=== PATIENT | female | born 1940 | race Caucasian/White ===

== ENCOUNTER → 2016-06-08 | Day surgery (SDC) | payer MEDICARE ==
[~2016-06-08] VITALS: Ht 167.6 cm; Wt 56.7 kg
[~2016-06-08] MED LIST: ACETAMINOPHEN 325 MG TAB PO PRN; ACETYLCHOLINE OPHTH SOLN 1% 2ML As Ordered ONE; ASPI1TAB PO; AcetaZOLAMIDE 500 MG ER CAP PO ONE; BALANCED SALT IRRIGATION SOLUTION 500ML BAG (FOR OR EYE MACHINE) As Ordered ONE; CEFUROXIME 1MG/0.1ML INTRACAMERAL INJ As Ordered ONE; CYCLOPENTOLATE 2% OPHTH SOLN As Ordered ONE; CYCLOPENTOLATE 2% OPHTH SOLN OD ONE; D5W/0.2% SODIUM CHLORIDE 250 ML IV SCH; HEALON DUET (HEALON 10MG/ML 0.55ML & HEALON ENDOCOAT 30MG/ML 0.85ML) As Ordered ONE; IBUP-1114 PO; KETOROLAC 0.5% OPHTH SOLN OD ONE; L-LY500T4 PO; LATA1POW OU; LIDOCAINE 1% SDV 5 ML VIAL As Ordered ONE; LIDOCAINE 4% INJ 5 ML AMP OU ONE; LUTECAP3 PO; MAGN1TAB25 PO; MIDAZOLAM INJ 2 MG/2 ML VIAL (J2250) As Ordered ONE; MULT1TAB10 PO; OFLOXACIN 0.3 % (OCUFLOX) OPTH SOL 5ML As Ordered ONE; OFLOXACIN 0.3 % (OCUFLOX) OPTH SOL 5ML OD ONE; PHENYLEPHRINE 2.5% OPHTH SOL 2ML As Ordered ONE; PHENYLEPHRINE 2.5% OPHTH SOL 2ML OD ONE; POTA99TA PO; POVIDONE-IODINE 5% OPHTH PREP SOL 30ML As Ordered ONE; PROPARACAINE 0.5% OPHTH SOL 15ML OD PRN; REST0.05 OU; TRIMETHOBENZAMIDE 300 MG CAP PO PRN; TROPICAMIDE 1% OPHTH SOLN 2 ML As Ordered ONE; TROPICAMIDE 1% OPHTH SOLN 2 ML OD ONE; VITA400T2 PO; ZEAX5POW PO; ZINC30TA3 PO; fentaNYL 100 MCG/2 ML INJECTION (J3010) As Ordered ONE
[2016-06-08 11:25] VITALS: BP 126/63
--- NOTE | 2016-06-09 07:16 | RO ---
DATE OF PROCEDURE: 06/08/2016 PREPROCEDURE DIAGNOSIS: Age related nuclear cataract right eye. POSTPROCEDURE DIAGNOSIS: Age related nuclear cataract right eye. PROCEDURE: Phacoemulsification and posterior chamber intraocular lens implantation. The lens used was AU00T0, 21.5 diopter. SURGEON: Bibi Bernard MD [employer] CLAIMS ADJUSTOR: ANESTHESIA: Topical with sedation. DESCRIPTION OF PROCEDURE: The patient was prepped and draped in the usual fashion. A lid speculum was placed between the lids. The eye was fixated. A stab incision was made to the anterior chamber, and 1% non-preserved lidocaine was instilled. Then, viscoelastic was instilled. The eye was re-fixated. A 2.75 mm sapphire keratome was used to make a clear corneal temporal limbal incision. Capsulorrhexis was begun with a 30-gauge bent needle and then carried out in a circular fashion with capsulorrhexis forceps. The lens was hydrodissected, and then the phacoemulsification unit was used to make a groove in the nucleus in two meridians. The nucleus was then cracked into four quadrants. Each quadrant was removed with the phacoemulsification unit. Any remaining cortex was removed with the irrigation and aspiration (I and A) unit. Capsular bag was refilled with viscoelastic. A posterior chamber intraocular lens was placed in the capsular bag without difficulty. Any remaining viscoelastic was removed with the I and A unit. The wound was hydrated, and Miochol and cefuroxime were instilled into the anterior chamber. The patient tolerated the procedure well and went to the recovery room in stable condition.
== END | disposition home or self-care (01) ==
LOC: M SDC 08:59
PROVIDERS: ATTEND Ophthalmology
DX: H25.11 Age-related nuclear cataract, right eye (principal); H40.9 Unspecified glaucoma; F41.9 Anxiety disorder, unspecified; G25.0 Essential tremor; M85.88 Other specified disorders of bone density and structure, other site; M19.90 Unspecified osteoarthritis, unspecified site; Z87.442 Personal history of urinary calculi; Z79.899 Other long term (current) drug therapy; Z79.82 Long term (current) use of aspirin
CPT/HCPCS: 66984; J2250; J3010; V2632

== ENCOUNTER → 2016-07-06 | Day surgery (SDC) | payer MEDICARE ==
[~2016-07-06] VITALS: Ht 167.6 cm; Wt 56.2 kg
[~2016-07-06] MED LIST changes: -CYCLOPENTOLATE 2% OPHTH SOLN OD ONE; +CYCLOPENTOLATE 2% OPHTH SOLN OS ONE; -D5W/0.2% SODIUM CHLORIDE 250 ML IV SCH; -KETOROLAC 0.5% OPHTH SOLN OD ONE; +KETOROLAC 0.5% OPHTH SOLN XX ONE; +MULT1CHW39 PO; -OFLOXACIN 0.3 % (OCUFLOX) OPTH SOL 5ML OD ONE; +OFLOXACIN 0.3 % (OCUFLOX) OPTH SOL 5ML OS ONE; -PHENYLEPHRINE 2.5% OPHTH SOL 2ML OD ONE; +PHENYLEPHRINE 2.5% OPHTH SOL 2ML OS ONE; -PROPARACAINE 0.5% OPHTH SOL 15ML OD PRN; +PROPARACAINE 0.5% OPHTH SOL 15ML XX PRN; -TROPICAMIDE 1% OPHTH SOLN 2 ML OD ONE; +TROPICAMIDE 1% OPHTH SOLN 2 ML OS ONE
[2016-07-06 11:41] VITALS: BP 122/57
--- NOTE | 2016-07-06 11:46 | RO ---
DATE OF PROCEDURE: 07/06/2016 PREPROCEDURE DIAGNOSIS: Age related nuclear cataract left eye. POSTPROCEDURE DIAGNOSIS: Age related nuclear cataract left eye. PROCEDURE: Phacoemulsification and posterior chamber intraocular lens implantation. The lens used was AU00T0, 21.5 diopter. SURGEON: Bibi Bernard MD [employer]ICER: ANESTHESIA: Topical with sedation. DESCRIPTION OF PROCEDURE: The patient was prepped and draped in the usual fashion. A lid speculum was placed between the lids. The eye was fixated. A stab incision was made to the anterior chamber, and 1% non-preserved lidocaine was instilled. Then, viscoelastic was instilled. The eye was re-fixated. A 2.75 mm sapphire keratome was used to make a clear corneal temporal limbal incision. Capsulorrhexis was begun with a 30-gauge bent needle and then carried out in a circular fashion with capsulorrhexis forceps. The lens was hydrodissected, and then the phacoemulsification unit was used to make a groove in the nucleus in two meridians. The nucleus was then cracked into four quadrants. Each quadrant was removed with the phacoemulsification unit. Any remaining cortex was removed with the irrigation and aspiration (I and A) unit. Capsular bag was refilled with viscoelastic. A posterior chamber intraocular lens was placed in the capsular bag without difficulty. Any remaining viscoelastic was removed with the I and A unit. The wound was hydrated, and Miochol and cefuroxime were instilled into the anterior chamber. The patient tolerated the procedure well and went to the recovery room in stable condition.
== END | disposition home or self-care (01) ==
LOC: M SDC 09:53
PROVIDERS: ATTEND Ophthalmology
DX: H25.12 Age-related nuclear cataract, left eye (principal); H40.9 Unspecified glaucoma; G25.0 Essential tremor; F41.9 Anxiety disorder, unspecified; M19.90 Unspecified osteoarthritis, unspecified site; N20.0 Calculus of kidney; Z79.899 Other long term (current) drug therapy; Z79.82 Long term (current) use of aspirin
CPT/HCPCS: 66984; J2250; J3010; V2632

== ENCOUNTER → 2017-05-10 | Outpatient (CLI) | payer MEDICARE ==
[2017-05-10 11:26] LABS: HEMATOCRIT 38.7 % (36.0-47.0); HEMOGLOBIN 13.7 g/dl (12.0-16.0); MEAN CORPUSCULAR HEMOGLOBIN 34.3 pg (27.0-33.0); MEAN CORPUSCULAR HGB CONC 35.4 g/dl (32.0-36.5); PLATELET COUNT, AUTOMATED 176 10^3/uL (150-450); RED BLOOD COUNT 3.99 10^6/uL (4.00-5.40); WHITE BLOOD COUNT 5.4 10^3/uL (4.0-10.0)
[2017-05-10 11:32] LABS: APPEARANCE, URINE CLEAR (CLEAR); BACTERIA, URINE AUTO NEGATIVE (NEGATIVE); BILIRUBIN, URINE AUTO NEGATIVE (NEGATIVE); BLOOD, URINE BLOOD 2+ (NEGATIVE); COLOR, URINE YELLOW (YELLOW); GLUCOSE, URINE (UA) AUTO NEGATIVE (NEGATIVE); KETONE, URINE AUTO NEGATIVE (NEGATIVE); LEUKOCYTE ESTERASE, URINE AUTO NEGATIVE (NEGATIVE); MUCUS, URINE SMALL (NEGATIVE); NITRITE, URINE AUTO NEGATIVE (NEGATIVE); PROTEIN, URINE AUTO NEGATIVE (NEGATIVE); RBC, URINE AUTO 4 /HPF (0-3); SQUAMOUS EPITHELIAL CELL UR AU 0 /HPF (0-6); UROBILINOGEN, URINE AUTO 0.2 mg/dL (0.0-2.0); WBC, URINE AUTO 0 /HPF (0-3)
[2017-05-10 11:40] LABS: INR 0.95; PROTHROMBIN TIME 12.8 SECONDS (12.4-14.5)
[2017-05-10 12:04] LABS: ALBUMIN 4.2 GM/DL (3.2-5.2); ALBUMIN/GLOBULIN RATIO 1.27 (1.00-1.93); ALKALINE PHOSPHATASE 77 U/L (45-117); ALT/SGPT 27 U/L (12-78); ANION GAP 7 MEQ/L (8-16); AST/SGOT 20 U/L (7-37); BILIRUBIN,TOTAL 0.6 MG/DL (0.2-1.0); BLOOD UREA NITROGEN 19 MG/DL (7-18); CALCIUM LEVEL 9.4 MG/DL (8.8-10.2); CARBON DIOXIDE LEVEL 29 MEQ/L (21-32); CHLORIDE LEVEL 102 MEQ/L (98-107); CREATININE FOR GFR 0.58 MG/DL (0.55-1.30); ERYTHROCYTE SEDIMENTATION RATE 23 mm/hr (0-30); GLOMERULAR FILTRATION RATE > 60.0 (>39); GLUCOSE, FASTING 93 MG/DL (70-100); SODIUM LEVEL 138 MEQ/L (136-145); TOTAL PROTEIN 7.5 GM/DL (6.4-8.2)
== END ==
LOC: M ADMPAT 09:49
DX: Z01.818 Encounter for other preprocedural examination (principal); M16.12 Unilateral primary osteoarthritis, left hip; Z79.01 Long term (current) use of anticoagulants; Z79.899 Other long term (current) drug therapy
CPT/HCPCS: 71046

== ENCOUNTER 2017-05-23 07:47 | Inpatient (IN) | payer MEDICARE ==
[2017-05-23] MEDS: LR 1,000 ML IV ×5 (08:00→20:18)
[2017-05-23] MEDS: LIDOCAINE 1% SDV 5 ML VIAL SC (08:00)
[2017-05-23] MEDS ORDERED: PHENYLephrine HCL 500 MCG/5 ML (100MCG/ML) SYRINGE (J2370) As Ordered ×2 (10:39→12:41)
[2017-05-23] MEDS ORDERED: MIDAZOLAM INJ 2 MG/2 ML VIAL (J2250) As Ordered (10:39)
[2017-05-23] MEDS ORDERED: ePHEDrine INJ 50 MG/ML VIAL As Ordered ×3 (10:39→12:39)
[2017-05-23] MEDS ORDERED: PROPOFOL 200 MG/20 ML VIAL As Ordered ×2 (10:39→12:38)
[2017-05-23] MEDS ORDERED: LIDOCAINE 2% INJ 100 MG/5 ML SDV (FOR ANES.) As Ordered ×2 (10:39→12:40)
[2017-05-23] MEDS: EPINEPHrine INJ 1 MG/ML 1ML AMP As Ordered (10:55)
[2017-05-23] MEDS: TRANEXAMIC ACID 100 MG/ML 10ML VIAL As Ordered (10:55)
[2017-05-23] MEDS: ceFAZolin 1GM INJ (J0690 PER 500MG) As Ordered (10:55)
[2017-05-23] MEDS ORDERED: MORPHINE 1MG/ML IN 0.9% NACL 100ML IV BAG As Ordered (11:20)
[2017-05-23] MEDS ORDERED: PERCOCET 5MG/325MG TAB As Ordered (12:07)
[2017-05-23] MEDS ORDERED: ONDANSETRON 4MG/2ML VIAL (J2405) As Ordered (12:07)
[2017-05-23] MEDS ORDERED: MEPERIDINE INJ 25 MG/ML VIAL (J2175) IV (12:15)
[2017-05-23] MEDS: PERCOCET 5MG/325MG TAB PO ×3 (12:15→20:18)
[2017-05-23] MEDS ORDERED: METOCLOPRAMIDE INJ 10MG/2ML VIAL (J2765) IV (12:15)
[2017-05-23] MEDS ORDERED: fentaNYL 100 MCG/2 ML INJECTION (J3010) IV (12:15)
[2017-05-23] MEDS ORDERED: MORPHINE 1MG/ML IN 0.9% NACL 100ML IV BAG IV (12:30)
[2017-05-23] MEDS ORDERED: NALOXONE INJ 0.4 MG/1 ML VIAL (J2310) IV (12:30)
[2017-05-23] MEDS ORDERED: NALBUPHINE HCL 10 MG/ML AMP (J2300) IV (12:30)
[2017-05-23] MEDS ORDERED: diphenhydrAMINE INJ 50MG/ML VIAL (J1200) IV (12:30)
[2017-05-23] MEDS ORDERED: EPIDURAL/PCA KEYS XX (12:30)
[2017-05-23] MEDS ORDERED: FLEET ENEMA PR (12:30)
[2017-05-23] MEDS: ONDANSETRON 4MG/2ML VIAL (J2405) IV ×2 (12:40→16:57)
[2017-05-23] MEDS: WARFARIN SOD 5 MG TAB PO (16:54)
[2017-05-23] MEDS ORDERED: PERCOCET 5MG/325MG TAB PO (20:00)
[2017-05-23] MEDS: LATANOPROST 0.005% OPHTH SOLN 2.5 ML OU (20:18)
[2017-05-23] MEDS: POLYVINYL ALCOHOL OPHTH SOLN 15 ML(LIQUITEARS) OU (20:18)
[2017-05-23] MEDS: ONDANSETRON 4 MG TAB (S0181) PO (20:19)
[2017-05-24] MEDS: ONDANSETRON 4 MG TAB (S0181) PO (02:13)
[2017-05-24] MEDS: PANTOPRAZOLE 40MG INJ (PROTONIX) (C9113) IV (06:20)
[2017-05-24 07:19] LABS: HEMATOCRIT 32.1 % (36.0-47.0); HEMOGLOBIN 11.5 g/dl (12.0-16.0); MEAN CORPUSCULAR HEMOGLOBIN 34.6 pg (27.0-33.0); MEAN CORPUSCULAR HGB CONC 35.8 g/dl (32.0-36.5); MEAN CORPUSCULAR VOLUME 96.7 fl (80.0-96.0); PLATELET COUNT, AUTOMATED 171 10^3/uL (150-450); RED BLOOD COUNT 3.32 10^6/uL (4.00-5.40); RED CELL DISTRIBUTION WIDTH 11.3 % (11.5-14.5); WHITE BLOOD COUNT 6.6 10^3/uL (4.0-10.0)
[2017-05-24 07:33] LABS: ANION GAP 8 MEQ/L (8-16); BLOOD UREA NITROGEN 13 MG/DL (7-18); CALCIUM LEVEL 8.7 MG/DL (8.8-10.2); CARBON DIOXIDE LEVEL 26 MEQ/L (21-32); CHLORIDE LEVEL 103 MEQ/L (98-107); CREATININE FOR GFR 0.71 MG/DL (0.55-1.30); GLOMERULAR FILTRATION RATE > 60.0 (>39); GLUCOSE, FASTING 145 MG/DL (70-100); MAGNESIUM LEVEL 1.9 MG/DL (1.8-2.4); POTASSIUM SERUM 3.8 MEQ/L (3.5-5.1); SODIUM LEVEL 137 MEQ/L (136-145)
[2017-05-24 07:35] LABS: INR 1.17; PROTHROMBIN TIME 15.1 SECONDS (12.4-14.5)
[2017-05-24] MEDS: ONDANSETRON 4MG/2ML VIAL (J2405) IV (07:35)
[2017-05-24] MEDS: METOCLOPRAMIDE 10 MG TAB PO ×4 (07:35→20:03)
[2017-05-24] MEDS: MIRALAX *UNIT DOSE* 17GM PACKET PO (09:00)
[2017-05-24] MEDS: MOM 30ML SUSPENSION UDC PO (09:59)
[2017-05-24] MEDS: SENOKOT S TAB PO ×2 (09:59→20:03)
[2017-05-24] MEDS: POLYVINYL ALCOHOL OPHTH SOLN 15 ML(LIQUITEARS) OU ×2 (10:00→20:04)
[2017-05-24] MEDS: PERCOCET 5MG/325MG TAB PO ×3 (10:00→23:13)
[2017-05-24] MEDS: LR 1,000 ML IV (15:10)
[2017-05-24] MEDS: WARFARIN SOD 5 MG TAB PO (17:30)
[2017-05-24] MEDS: ACETAMINOPHEN TAB 650MG DOSE (2X325MG) PO (19:18)
[2017-05-24] MEDS: LATANOPROST 0.005% OPHTH SOLN 2.5 ML OU (20:04)
[2017-05-24] MEDS: hydrOXYzine 25 MG TAB PO (20:05)
[2017-05-25] MEDS: PERCOCET 5MG/325MG TAB PO ×2 (03:57→07:52)
[2017-05-25 07:09] LABS: HEMATOCRIT 30.7 % (36.0-47.0); HEMOGLOBIN 10.9 g/dl (12.0-16.0); MEAN CORPUSCULAR HEMOGLOBIN 34.1 pg (27.0-33.0); MEAN CORPUSCULAR HGB CONC 35.5 g/dl (32.0-36.5); MEAN CORPUSCULAR VOLUME 95.9 fl (80.0-96.0); PLATELET COUNT, AUTOMATED 165 10^3/uL (150-450); RED CELL DISTRIBUTION WIDTH 11.1 % (11.5-14.5); WHITE BLOOD COUNT 6.8 10^3/uL (4.0-10.0)
[2017-05-25 07:24] LABS: ANION GAP 6 MEQ/L (8-16); BLOOD UREA NITROGEN 9 MG/DL (7-18); CALCIUM LEVEL 8.7 MG/DL (8.8-10.2); CARBON DIOXIDE LEVEL 30 MEQ/L (21-32); CHLORIDE LEVEL 101 MEQ/L (98-107); CREATININE FOR GFR 0.52 MG/DL (0.55-1.30); GLOMERULAR FILTRATION RATE > 60.0 (>39); GLUCOSE, FASTING 100 MG/DL (70-100); INR 1.52; MAGNESIUM LEVEL 2.3 MG/DL (1.8-2.4); POTASSIUM SERUM 3.8 MEQ/L (3.5-5.1); PROTHROMBIN TIME 18.7 SECONDS (12.4-14.5); SODIUM LEVEL 137 MEQ/L (136-145)
[2017-05-25] MEDS: MOM 30ML SUSPENSION UDC PO (07:51)
[2017-05-25] MEDS: SENOKOT S TAB PO (07:52)
[2017-05-25] MEDS: POLYVINYL ALCOHOL OPHTH SOLN 15 ML(LIQUITEARS) OU (07:53)
[2017-05-25] MEDS: METOCLOPRAMIDE 10 MG TAB PO (07:53)
[2017-05-25] MEDS: MIRALAX *UNIT DOSE* 17GM PACKET PO (07:53)
== END 2017-05-25 11:40 | disposition home health service (06) | DRG 470 ==
LOC: M OR 07:47 → M MS5PR 13:45
PROC: 0SRB02Z Replacement of Left Hip Joint with Metal on Polyethylene Synthetic Substitute, Open Approach (ICD-10-PCS; principal; 2017-05-23 09:50)
DX: M16.12 Unilateral primary osteoarthritis, left hip (principal); M87.052 Idiopathic aseptic necrosis of left femur; F41.9 Anxiety disorder, unspecified; R11.2 Nausea with vomiting, unspecified; H04.123 Dry eye syndrome of bilateral lacrimal glands; Z87.442 Personal history of urinary calculi; Z96.653 Presence of artificial knee joint, bilateral; Z79.82 Long term (current) use of aspirin; Z79.899 Other long term (current) drug therapy